=== PATIENT | female | born 1960 | race Hispanic/Latino ===

== ENCOUNTER 2020-01-05 10:01 | Inpatient (IN) | payer MEDICARE ==
[2020-01-05] VITALS (11 sets, daily range): BP systolic 116–157; BP diastolic 50–83
[~2020-01-05] VITALS: Ht 162.6 cm; Wt 70.9 kg
--- NOTE | 2020-01-05 10:30 | NUR ---
preop pt arrived via w/c. pt in no distress. pt has rt hand and left foot weakness. pt has catheter for dialysis to rt chest wall with dressing clean and dry and lines secured and clamped. pt oriented to room, call light with in reach and pt connected to patient monitor
[2020-01-05 10:50] LABS: BASOPHILS % (AUTO) 0.5 % (0.0-5.0); EOSINOPHILS % (AUTO) 5.4 % (0.0-8.0); HEMATOCRIT 34.7 % (36-48); MEAN CORPUSCULAR HEMOGLOBIN 30.7 pg (27.0-33.0); MEAN CORPUSCULAR HGB CONC 30.8 g/dL (32.0-36.0); MEAN CORPUSCULAR VOLUME 99.4 fL (79-99); MONOCYTES % (AUTO) 7.5 % (3.0-13.0); NEUTROPHILS % (AUTO) 73.4 % (40.0-77.0); PLATELET COUNT (AUTO) 169 K/uL (130-400); RED BLOOD CELL COUNT(AUTO) 3.49 MIL/uL (4.00-5.50); RED CELL DISTRIBUTION WIDTH 15.1 % (11.0-15.5); WHITE BLOOD COUNT (AUTO) 8.1 K/uL (4.8-10.8)
[2020-01-05 11:07] LABS: CREATININE 3.6 mg/dL (0.5-1.5); POTASSIUM 4.7 mmol/L (3.5-5.1)
[2020-01-05] MEDS ORDERED: METO-409 PO (11:42)
[2020-01-05] MEDS ORDERED: HYDR100T27 PO (11:42)
[2020-01-05] MEDS ORDERED: FOLI1TAB85 PO (11:42)
[2020-01-05] MEDS ORDERED: ISOS60TA4 PO (11:42)
[2020-01-05] MEDS ORDERED: ALLO100T PO (11:42)
[2020-01-05] MEDS ORDERED: AEC81 PO (11:42)
[2020-01-05] MEDS ORDERED: GABA300S PO (11:42)
[2020-01-05] MEDS ORDERED: ATOR40TA71 PO (11:42)
[2020-01-05 12:04] LABS: PARTIAL THROMBOPLASTIN TIME 23.9 SEC (26.3-35.5); PROTHROMBIN TIME 10.8 SEC (9.6-11.6)
[2020-01-05] MEDS ORDERED: SODIUM CHLORIDE 0.9% 1000ML 1,000 ML IV ONE (12:05)
--- NOTE | 2020-01-05 14:00 | NUR ---
report called aravind andujar with dr verdin. reported rbs of 70. received new orders from dr verdin/aravind hurtado rn for 1/2 amp d50.
[2020-01-05] MEDS ORDERED: DEXTROSE 50%-WATER 50 ML DISP.SYRIN IV ONE (14:05)
--- NOTE | 2020-01-05 14:08 | NUR ---
dextrose adm 1/2 of d50 ivp slowly. pt asymptomatic. will continue to monitor pt. pt a/o x3 in no distress. pt still waiting for procedure Addendum: 01/05/20 at 1426 by MARTELL DUARTE RN RN for RBS 70.
--- NOTE | 2020-01-05 14:50 | NUR ---
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
[2020-01-05] MEDS ORDERED: IODIXANOL 320 MG/ML 100 ML VIAL ONE (15:06)
[2020-01-05] MEDS ORDERED: LIDOCAINE HCL 1% MDV 50ML VIAL ONE (15:07)
--- NOTE | 2020-01-05 15:58 | NUR ---
report report given to lizz andujar
--- NOTE | 2020-01-05 16:40 | NUR ---
PATIENT RETURNED FROM OBJECTIVE C DEVELOPER VIA BED BY ROSA CONNELLY AND ROSA SWANSON. PATIENT AAOX3 ,RESPIRATIONS UNLABORED, VITAL SIGNS STABLE, DENIES ANY PAIN AT THIS TIME. DRESSING TO LEFT UPPER ARM IS DRY AND INTACT, NO BLEEDING OR HEMATOMA NOTED.
--- NOTE | 2020-01-05 18:00 | NUR ---
REPORT CALLED TO ROSA DELATORRE USING SBAR. ALL QUESTIONS/CONCERNS ADDRESSED.
--- NOTE | 2020-01-05 18:25 | NUR ---
PATIENT TRANSFERRED TO ROOM 422 VIA WHEELCHAIR. ROSA DELATORRE IN ROOM AND AT BEDSIDE. DRESSING TO RIGHT ARM DRY/INTACT, NO HEMATOMA NOTED.
[2020-01-05] MEDS: GABAPENTIN 300 MG CAPSULE PO SCH (20:58)
[2020-01-05] MEDS: ATORVASTATIN CALCIUM 40 MG TABLET PO SCH (20:59)
[2020-01-05] MEDS: HYDRALAZINE HCL 25 MG TABLET PO SCH (20:59)
[2020-01-06] VITALS (22 sets, daily range): BP systolic 102–150; BP diastolic 49–64
[2020-01-06 03:16] LABS: MEAN CORPUSCULAR HGB CONC 32.7 g/dL (32.0-36.0); MEAN CORPUSCULAR VOLUME 97.6 fL (79-99); RED BLOOD CELL COUNT(AUTO) 3.38 MIL/uL (4.00-5.50); WHITE BLOOD COUNT (AUTO) 7.9 K/uL (4.8-10.8)
[2020-01-06 03:24] LABS: CREATININE 4.2 mg/dL (0.5-1.5)
[2020-01-06 03:27] LABS: INR 1.02 (0.85-1.15); PARTIAL THROMBOPLASTIN TIME 29.4 SEC (26.3-35.5)
[2020-01-06] MEDS: ASPIRIN 81 MG EC TAB PO SCH (09:00)
[2020-01-06] MEDS: HYDRALAZINE HCL 25 MG TABLET PO SCH ×2 (09:05→20:51)
[2020-01-06] MEDS: FOLIC ACID/VITAMIN B COMP W-C 1 CAP TAB PO SCH (09:05)
[2020-01-06] MEDS: METOPROLOL SUCCINATE 50 MG TAB.SR.24H PO SCH (09:06)
[2020-01-06] MEDS: ALLOPURINOL 100 MG TABLET PO SCH (09:06)
[2020-01-06] MEDS: ISOSORBIDE MONO 60 MG TAB.SR PO SCH (09:06)
--- NOTE | 2020-01-06 10:25 | NUR ---
MISTY SOSA COMPLETED LANG PATH THERAPIST COORDINATED WITH NURSE CHEEK. Pt CURRENTLY NPO PENDING PROCEDURE. PER NURSE, PRIOR TO BEING NPO, Pt WAS TOELRATING REGULAR DIET WITH THIN LIQUIDS WITH NO S/S OF ASPIRATION. LANG PATH THERAPIST WILL FOLLOW Pt TO COMPLETE AN EVALUATION. Addendum: 01/06/[address]ZA LAST Amended: Links added.
[2020-01-06] MEDS ORDERED: CEFAZOLIN SODIUM 1 GM VIAL IVP PRN (11:00)
[2020-01-06] MEDS ORDERED: SUCCINYLCHOLINE CHLORIDE 20 MG/ML 10 ML VIAL ONE (13:26)
[2020-01-06] MEDS ORDERED: FENTANYL CITRATE PF 50 MCG/1 ML 2ML VIAL ONE (13:26)
[2020-01-06] MEDS ORDERED: PROPOFOL 10 MG/ML 20ML VIAL IV ONE (13:26)
[2020-01-06] MEDS ORDERED: ROCURONIUM 10MG/1ML SYR 10 MG/ML ML ONE (13:27)
[2020-01-06] MEDS ORDERED: MIDAZOLAM HCL 1 MG/ML 2ML VIAL ONE (13:27)
[2020-01-06] MEDS ORDERED: LIDOCAINE PF 2% 5ML ABBOJECT ONE (13:27)
[2020-01-06] MEDS ORDERED: ACETAMINOPHEN 325 MG TAB PO PRN (13:45)
[2020-01-06] MEDS ORDERED: TRAMADOL HCL 50 MG TABLET PO PRN ×2 (13:45)
[2020-01-06] MEDS ORDERED: EPHEDRINE SULFATE 50 MG/ML AMPULE ONE (14:09)
--- NOTE | 2020-01-06 14:56 | NUR ---
CM NOTE/IA MEET WITH PATIENT IN ROOM. PER PATIENT, IS INDEPENDENT WITH ADLS, LIVES WITH SISTER, HAS CANE IN USE, DIALYSIS AT [facility], DAUGHTER TAKES TO APPOINTMENTS, AND FEELS SAFE TO RETURN HOME ONCE DISCHARGED. Addendum: 01/06/20 at 1457 by HYUN DUARTE RN CM Amended: Links added.
[2020-01-06] MEDS ORDERED: CEFAZOLIN SODIUM 1 GM VIAL ONE (14:58)
[2020-01-06] MEDS ORDERED: PROTAMINE SULFATE 10 MG/ML 5 ML VIAL ONE (15:12)
[2020-01-06] MEDS ORDERED: ONDANSETRON HCL 4 MG/2 ML VIAL ONE (15:18)
[2020-01-06] MEDS ORDERED: GLYCOPYRROLATE 1 MG/5 ML SYRINGE ONE (15:19)
--- NOTE | 2020-01-06 17:12 | NUR ---
NUTRITION EDUCATION Pt returned from procedure. DEBORA reviewed Dialysis Nutrition education with Pt. Pt verbalized understanding. DEBORA to continue to monitor. Addendum: 01/06/20 at [address] Amended: Links added.
[2020-01-06] MEDS: ATORVASTATIN CALCIUM 40 MG TABLET PO SCH (20:51)
[2020-01-06] MEDS: GABAPENTIN 300 MG CAPSULE PO SCH (20:53)
[2020-01-07 03:45] VITALS: BP 139/61
[2020-01-07 04:22] LABS: HEMATOCRIT 28.8 % (36-48); MEAN CORPUSCULAR HGB CONC 33.3 g/dL (32.0-36.0); RED CELL DISTRIBUTION WIDTH 14.6 % (11.0-15.5)
[2020-01-07 05:34] LABS: CREATININE 2.7 mg/dL (0.5-1.5); PHOSPHORUS 4.1 mg/dL (2.5-4.9); POTASSIUM 3.9 mmol/L (3.5-5.1)
[2020-01-07 08:00] VITALS: BP 120/58
[2020-01-07] MEDS: METOPROLOL SUCCINATE 50 MG TAB.SR.24H PO SCH (08:31)
[2020-01-07] MEDS: ISOSORBIDE MONO 60 MG TAB.SR PO SCH (08:31)
[2020-01-07] MEDS: HYDRALAZINE HCL 25 MG TABLET PO SCH ×2 (08:31→21:22)
[2020-01-07] MEDS: ASPIRIN 81 MG EC TAB PO SCH (08:31)
[2020-01-07] MEDS: ALLOPURINOL 100 MG TABLET PO SCH (08:31)
[2020-01-07] MEDS: FOLIC ACID/VITAMIN B COMP W-C 1 CAP TAB PO SCH (08:31)
--- NOTE | 2020-01-07 10:00 | NUR ---
HENRIQUE WRAPS REMOVED FROM BILATERIAL LEGS AND DEB HOSE APPLIED PER DR ROWE VERBAL ORDERS; PT HAS A CDI DRESSINGS TO BILATERIAL INNER LEGS NEAR KNEES AT SITES OF VEIN REMOVAL ATTEMPTS.
[2020-01-07 12:00] VITALS: BP 123/58
[2020-01-07 16:00] VITALS: BP 120/56
[2020-01-07 19:57] VITALS: BP 106/51
[2020-01-07] MEDS: GABAPENTIN 300 MG CAPSULE PO SCH (21:00)
[2020-01-07] MEDS: ATORVASTATIN CALCIUM 40 MG TABLET PO SCH (21:22)
[2020-01-07 23:37] VITALS: BP 122/59
[2020-01-08 03:59] VITALS: BP 144/63
[2020-01-08 05:04] LABS: BASOPHILS % (AUTO) 0.6 % (0.0-5.0); EOSINOPHILS % (AUTO) 6.3 % (0.0-8.0); HEMATOCRIT 26.6 % (36-48); LYMPHOCYTES % (AUTO) 16.7 % (21.0-51.0); MEAN CORPUSCULAR HEMOGLOBIN 31.4 pg (27.0-33.0); MEAN CORPUSCULAR HGB CONC 32.7 g/dL (32.0-36.0); MONOCYTES % (AUTO) 11.8 % (3.0-13.0); NEUTROPHILS % (AUTO) 64.3 % (40.0-77.0); PLATELET COUNT (AUTO) 126 K/uL (130-400); RED BLOOD CELL COUNT(AUTO) 2.77 MIL/uL (4.00-5.50); RED CELL DISTRIBUTION WIDTH 14.6 % (11.0-15.5)
[2020-01-08 05:30] LABS: ALBUMIN 2.6 g/dL (3.5-5.0); BILIRUBIN,TOTAL 0.4 mg/dL (0.2-1.0); CREATININE 4.1 mg/dL (0.5-1.5); POTASSIUM 4.3 mmol/L (3.5-5.1); TOTAL PROTEIN, SERUM 6.7 g/dL (6.0-8.3)
[2020-01-08] MEDS ORDERED: GABAPENTIN 100 MG CAPSULE PO PRN (07:45)
[2020-01-08 08:00] VITALS: BP 134/57
[2020-01-08] MEDS: FOLIC ACID/VITAMIN B COMP W-C 1 CAP TAB PO SCH (09:54)
[2020-01-08] MEDS: ASPIRIN 81 MG EC TAB PO SCH (09:54)
[2020-01-08] MEDS: ISOSORBIDE MONO 60 MG TAB.SR PO SCH (09:54)
[2020-01-08] MEDS: HYDRALAZINE HCL 25 MG TABLET PO SCH ×2 (09:55→21:01)
[2020-01-08] MEDS: ALLOPURINOL 100 MG TABLET PO SCH (09:55)
[2020-01-08] MEDS: METOPROLOL SUCCINATE 50 MG TAB.SR.24H PO SCH (09:55)
[2020-01-08 12:00] VITALS: BP 140/59
--- NOTE | 2020-01-08 12:52 | NUR ---
DOPPLER DONE ON PT'S RIGHT ARM AV SITE AND A STRONG BRUIT AND THRILL IS NOTED.
[2020-01-08 16:00] VITALS: BP 114/48
--- NOTE | 2020-01-08 16:38 | NUR ---
CM NOTE/HH WITH PT CALLED DR. MCALLISTER TO CLARIFY ORDER. OK FOR HH WITH PT. MEET WITH PATIENT IN ROOM, OPTIONS FOR HH WITH PT GIVEN BASED ON INSURANCE COVERAGE. PER PATIENT, WILL TALK TO SISTER ABOUT OPTIONS AND GET BACK TO ME TO WHAT HH TO USE FOR PT. CM TO FOLLOW UP. PRIMARY NURSE, VICENTE LEE, MADE AWARE.
--- NOTE | 2020-01-08 19:05 | NUR ---
Received report patient does not have IV site because she is going home tomorrow.
[2020-01-08 20:08] VITALS: BP 135/58
--- NOTE | 2020-01-08 20:30 | NUR ---
right arm pulses checked with doppler and it is well appreciated.Attempted to put new IVbut unsuccesful and patient refused to be poke again
[2020-01-08] MEDS: ATORVASTATIN CALCIUM 40 MG TABLET PO SCH (21:02)
[2020-01-08 23:38] VITALS: BP 128/53
[2020-01-09 04:09] LABS: BASOPHILS % (AUTO) 0.4 % (0.0-5.0); EOSINOPHILS % (AUTO) 8.5 % (0.0-8.0); HEMATOCRIT 26.2 % (36-48); LYMPHOCYTES % (AUTO) 17.6 % (21.0-51.0); MEAN CORPUSCULAR HEMOGLOBIN 31.6 pg (27.0-33.0); MEAN CORPUSCULAR HGB CONC 32.8 g/dL (32.0-36.0); MEAN CORPUSCULAR VOLUME 96.3 fL (79-99); MONOCYTES % (AUTO) 10.1 % (3.0-13.0); PLATELET COUNT (AUTO) 137 K/uL (130-400); RED BLOOD CELL COUNT(AUTO) 2.72 MIL/uL (4.00-5.50); RED CELL DISTRIBUTION WIDTH 14.8 % (11.0-15.5); WHITE BLOOD COUNT (AUTO) 6.7 K/uL (4.8-10.8)
[2020-01-09 04:10] VITALS: BP 125/49
[2020-01-09 04:17] LABS: CREATININE 5.1 mg/dL (0.5-1.5); POTASSIUM 4.5 mmol/L (3.5-5.1)
[2020-01-09 07:53] VITALS: BP 139/59
[2020-01-09] MEDS: FOLIC ACID/VITAMIN B COMP W-C 1 CAP TAB PO SCH (09:00)
[2020-01-09] MEDS: METOPROLOL SUCCINATE 50 MG TAB.SR.24H PO SCH (09:00)
[2020-01-09] MEDS: ISOSORBIDE MONO 60 MG TAB.SR PO SCH (09:00)
[2020-01-09] MEDS: ASPIRIN 81 MG EC TAB PO SCH (09:00)
[2020-01-09] MEDS: HYDRALAZINE HCL 25 MG TABLET PO SCH (09:00)
[2020-01-09] MEDS: ALLOPURINOL 100 MG TABLET PO SCH (09:00)
--- NOTE | 2020-01-09 10:10 | NUR ---
MISTY SOSA. MANAGER HOUSEKEEPING COORDINATED WITH NURSE. Pt CURRENTLY ON DIALYSIS. HOLD EVALUATION. MANAGER HOUSEKEEPING WILL FOLLOW Pt TO EVALUATE. Addendum: 01/09/[address]ZA LAST Amended: Links added.
--- NOTE | 2020-01-09 11:20 | NUR ---
AYAKA NEUMANN/ HH MEET WITH PATIENT IN ROOM TO DISCUSS DC PLANNING AND IF SHE MADE DECISION ABOUT HOME HEALTH. PER PATIENT, WANTS [employer]. IN NETWORK WITH INSURANCE, ADELAIDA SIGNED. FAXED ORDER FOR [employer], PENDING CONFIRMATION VIA FAX. OFFICE CALLED AT [phone], ANSWERING SERVICES AVAILBLE, NURSE PAGED, PENDING RETURN CALL.
[2020-01-09 11:31] VITALS: BP 148/60
[2020-01-09] MEDS ORDERED: HEPARIN SODIUM 5000UNIT/ML 1ML VIAL ONE (11:41)
[2020-01-09] MEDS ORDERED: NITROGLYCERIN 0.4 MG SL TAB SL PRN (12:00)
[2020-01-09] MEDS ORDERED: LIDOCAINE HCL-MPF 1% 2ML VIAL IJ PRN (12:00)
[2020-01-09] MEDS ORDERED: 0.9% SODIUM CHLORIDE 1000 ML IV BAG IV PRN (12:00)
[2020-01-09] MEDS ORDERED: SODIUM CHLORIDE 0.9% 1000ML 1,000 ML IV PRN (12:00)
[2020-01-09] MEDS ORDERED: ACETAMINOPHEN 325 MG TAB PO PRN (12:00)
[2020-01-09] MEDS ORDERED: HEPARIN SODIUM 5000UNIT/ML 1ML VIAL IJ PRN ×2 (12:00)
--- NOTE | 2020-01-09 12:45 | NUR ---
CM NOTE/[place] ACCEPTED PER MICKY AT [facility], PATIENT APPROVED FOR SERVICES FOR PT. PRIMARY NURSE, JOHN LEE, MADE AWARE.
[2020-01-09] MEDS ORDERED: EPOETIN ALFA 10,000 UNIT/ML VIAL SQ SCH (13:30)
--- NOTE | 2020-01-09 14:35 | NUR ---
HL REMOVED, CATHETER INTACT. DISCHARGE INSTRUCTIONS GIVEN, PT. VERBALIZED UNDERSTANDING. Addendum: 01/09/20 at [address] RN RN ENTRY ERROR.
[2020-01-09] MEDS ORDERED: GABA100C PO (17:06)
--- NOTE | 2020-01-09 17:15 | NUR ---
DISCHARGE INSTRUCTIONS GIVEN, VERBALIZED UNDERSTANDING.
== END 2020-01-09 17:51 | disposition home health service (06) | DRG 252 ==
LOC: CLH 10:01 → DAH 10:01 → CLH 19:19 → EDHIP 19:19 → 4DH 20:00
PROVIDERS: ADMIT Thoracic Surgery (Cardiothoracic Vascular Surgery); ATTEND Thoracic Surgery (Cardiothoracic Vascular Surgery)
PROC: B51W1ZZ Fluoroscopy of Dialysis Shunt/Fistula using Low Osmolar Contrast (ICD-10-PCS; 2020-01-05)
PROC: B3111ZZ Fluoroscopy of Right Brachiocephalic-Subclavian Artery using Low Osmolar Contrast (ICD-10-PCS; 2020-01-05)
PROC: B31N1ZZ Fluoroscopy of Other Upper Arteries using Low Osmolar Contrast (ICD-10-PCS; 2020-01-05)
PROC: 5A1D70Z Performance of Urinary Filtration, Intermittent, Less than 6 Hours Per Day (ICD-10-PCS; 2020-01-06)
PROC: 03WY07Z Revision of Autologous Tissue Substitute in Upper Artery, Open Approach (ICD-10-PCS; principal; 2020-01-06 13:24)
PROC: 5A1D70Z Performance of Urinary Filtration, Intermittent, Less than 6 Hours Per Day (ICD-10-PCS; 2020-01-08)
DX: T82.898A Other specified complication of vascular prosthetic devices, implants and grafts, initial encounter (principal); N18.6 End stage renal disease; I13.2 Hypertensive heart and chronic kidney disease with heart failure and with stage 5 chronic kidney disease, or end stage renal disease; I42.9 Cardiomyopathy, unspecified; E11.22 Type 2 diabetes mellitus with diabetic chronic kidney disease; E11.51 Type 2 diabetes mellitus with diabetic peripheral angiopathy without gangrene; E78.5 Hyperlipidemia, unspecified; I25.10 Atherosclerotic heart disease of native coronary artery without angina pectoris; I50.9 Heart failure, unspecified; Y83.2 Surgical operation with anastomosis, bypass or graft as the cause of abnormal reaction of the patient, or of later complication, without mention of misadventure at the time of the procedure; Z95.810 Presence of automatic (implantable) cardiac defibrillator; Z95.1 Presence of aortocoronary bypass graft; Z99.2 Dependence on renal dialysis; Y92.89 Other specified places as the place of occurrence of the external cause
CPT/HCPCS: 36415; 36901; 80048; 80053; 82948; 84100; 85025; 85027; 85610; 85730; 86850; 86900; 86901; 86922; 90935; A4606; C1769; C1894; G0378; J0330; J0690; J0885; J1644; J2001; J2250; J2405; J2704; J2720; J3010; J3490; J7030; J7070; Q9967

== ENCOUNTER → 2020-08-28 | Outpatient (CLI) | payer MEDICARE ==
[~2020-08-28] MED LIST: AEC81 PO; ALLO100T PO; ATOR40TA71 PO; DOXY100C2 PO; FOLI1TAB85 PO; GABA100C PO; ISOS60TA4 PO; LOSA100T58 PO; METO-409 PO
== END | disposition home or self-care (01) ==
LOC: RAH 13:55
PROVIDERS: ATTEND Thoracic Surgery (Cardiothoracic Vascular Surgery)
DX: T82.898A Other specified complication of vascular prosthetic devices, implants and grafts, initial encounter (principal); N18.6 End stage renal disease; I77.0 Arteriovenous fistula, acquired; I73.9 Peripheral vascular disease, unspecified
CPT/HCPCS: 93925